=== PATIENT | male | born 1945 | race Caucasian/White ===

== ENCOUNTER 2016-10-28 18:53 | Observation (INO) | payer OTHER ==
[~2016-10-28] VITALS: Ht 177.8 cm; Wt 97.0 kg
[~2016-10-28 18:53] MED LIST: ACEROLA C500 M2 PO; AMLODIPINE BESY10 MG PO; ASCORBIC ACID500 M3 PO; ASPIR 8181 M1 PO; ASPIRIN81 M2 PO; ATENOLOL25 MG PO; ATENOLOL50 M1 NG; ATENOLOL50 MG PO; ATIVAN0.5 MG PO; ATORVASTATIN CA80 MG PO; CARDIZEM CD,CA180 MG PO; CARDIZEM CD120 MG PO; CARDIZEM CD180 MG PO; CARDURA4 MG PO; CENTRAL VITE F1 EACH PO; CENTRAL-VITE S1 EAC2 PO; CILOSTAZOL100 MG PO; CILOSTAZOL50 MG PO; CIPRO500 MG PO; CLEOCIN300 MG PO; COLACE100 MG PO; DETROL LA4 MG PO; DOCU SOFT100 MG PO; DOXAZOSIN MESYLA4 MG PO; DOXAZOSIN MESYLA8 MG PO; ENDOCET 5-3251 EACH PO; IMODIUM MS REL1 EACH PO; KEFLEX500 MG PO; LEVOFLOXACIN500 MG PO; LIPITOR20 MG PO; LIPITOR40 MG PO; LISINOPRIL10 MG PO; LOPERAMIDE2 M1 PO; LOPERAMIDE2 MG PO; LOPRESSOR25 MG PO; LORAZEPAM0.5 MG PO; LOW DOSE ASPIRI81 M1 PO; LYRICA100 MG PO; LYRICA200 MG PO; METOPROLOL TART25 MG PO; MIRALAX17 GM PO; MULTIVITAMIN1 EAC2 PO; NORVASC10 MG PO; NYSTATIN15 G1 TP; PANTOPRAZOLE SO40 MG PO; PLAVIX75 MG PO; PLETAL100 MG PO; PRILOSEC20 MG PO; PRINIVIL10 MG PO; PRINIVIL20 MG PO; PROSOURCE LIQUI30 ML PO; PROTONIX40 MG PO; Q-TUSSIN DM SY240 ML PO; RANITIDINE HCL300 MG PO; ROBITUSSIN DM118 ML PO; TENORMIN25 MG PO; TENORMIN50 MG PO; TRAMADOL HCL100 MG PO; TRAMADOL HCL50 MG PO; TUMS500 MG PO; TYLENOL REGULA325 MG PO; ULTRAM ER100 MG PO; ULTRAM50 MG PO; VITAMIN B-250 MG PO; VITAMIN B-650 M1 PO; VITAMIN B-650 MG PO; VITAMIN C500 M1 PO; ZANTAC300 MG PO; ZOLOFT100 MG PO; ZYPREXA20 MG PO
[2016-10-28 19:35] LABS: HEMATOCRIT 34.3 % (38.0-50.0); MCH 30.3 PG (29.0-34.0); MCHC 34.7 G/DL (30.0-36.0); MCV 87.3 FL (86-99); MEAN PLAT.VOLUME 11.8 uM^3 (9.0-12.4); PLATELET COUNT 123 K/uL (156-360); RBC DIS.WIDTH-CV 12.6 % (11.8-14.6); RBC DIS.WIDTH-SD 40.5 % (39-53); RED BLOOD COUNT 3.93 M/uL (4.00-5.50)
[2016-10-28 19:44] LABS: CHLORIDE 99 mEq/L (99-109); POTASSIUM 4.2 mEq/L (3.7-5.4); SODIUM 130 mEq/L (136-147)
[2016-10-28 19:45] LABS: GLUCOSE 109 mg/dL (70-99)
[2016-10-28 19:47] LABS: ANION GAP 7 MEQ/L (2-14)
[2016-10-28 19:49] LABS: GFR ESTIMATE (CALCULATED) > 59 mL/min/
[2016-10-28 19:50] LABS: UREA NITROGEN (BUN) 13 mg/dL (9-23)
[2016-10-28 19:57] LABS: TROP-I INTERPRETATION NEGATIVE; TROPONIN-I < 0.01 ng/mL (0.0-0.30)
[2016-10-28 23:32] LABS: D-DIMER ELISA 2.29 mg/L FEU (< 0.57)
[2016-10-29] VITALS (7 sets, daily range): BP systolic 112–195; BP diastolic 53–95
[2016-10-29 00:33] LABS: ADD MIUA? YES; BILIRUBIN NEGATIVE; BLOOD NEGATIVE; COLOR COLORLESS ((YELLOW)); GLUCOSE (STRIP) NEGATIVE; INFLUENZA A VIRAL ANTIGEN NEGATIVE; INFLUENZA B VIRAL ANTIGEN NEGATIVE; KETONES NEGATIVE; LEUKOCYTES NEGATIVE; NITRITE NEGATIVE; PROTEIN (STRIP) 100; SPECIFIC GRAVITY 1.003 (1.000-1.030); UROBILINOGEN 0.2 MG/DL (0.2-1.0)
[2016-10-29 00:45] LABS: BACTERIA NONE SEEN /HPF; EPITHELIAL CELLS RARE /HPF; MUCUS NONE SEEN /LPF; RED BLOOD CELLS 0-5 /HPF (0-5); UCUL ADDED? NO; WHITE BLOOD CELLS 0-5 /HPF (0-5)
[2016-10-29 02:24] LABS: TROP-I INTERPRETATION NEGATIVE; TROPONIN-I < 0.01 ng/mL (0.0-0.30)
[2016-10-29 09:06] LABS: HEMATOCRIT 36.4 % (38.0-50.0); MCH 30.2 PG (29.0-34.0); MCHC 34.9 G/DL (30.0-36.0); MCV 86.7 FL (86-99); MEAN PLAT.VOLUME 12.5 uM^3 (9.0-12.4); PLATELET COUNT 139 K/uL (156-360); RBC DIS.WIDTH-CV 13.1 % (11.8-14.6); WHITE BLOOD COUNT 6.4 K/uL (4.1-10.2)
[2016-10-29 09:20] LABS: ALKALINE PHOSPHATASE 117 IU/L (3-129); ANION GAP 9 MEQ/L (2-14); CHLORIDE 101 MEQ/L (99-109); GFR ESTIMATE (CALCULATED) > 59 mL/min/; HDL CHOLESTEROL 57 MG/DL (Desirable>=40); LDL CHOLESTEROL 70 mg/dL (Desirable<100); NON-HDL CHOLESTEROL 79 mg/dL (Desirable<160); POTASSIUM 4.2 MEQ/L (3.7-5.4); SAMPLE HEMOLYSIS CHECK 0; SAMPLE ICTERIC CHECK 0; SAMPLE LIPEMIA CHECK 0; SODIUM 134 MEQ/L (136-147); TOTAL BILIRUBIN 0.5 MG/DL (0.0-1.0); TOTAL CHOLESTEROL 136 mg/dL (Desirable<200); TRIGLYCERIDES 45 MG/DL (Normal: <150); UREA NITROGEN (BUN) 14 mg/dL (9-23)
[2016-10-29 09:27] LABS: TROP-I INTERPRETATION NEGATIVE; TROPONIN-I < 0.01 ng/mL (0.0-0.30)
[2016-10-29 09:32] LABS: GLUCOSE 170 mg/dL (70-99)
[2016-10-29 09:46] LABS: Estimated Average Glucose 123 mg/dL (70-123); HEMOGLOBIN A1c (GLYCOHEMOGLOB) 5.9 % HGB (Below 5.7)
[2016-10-30 00:30] VITALS: BP 185/79
[2016-10-30 04:54] VITALS: BP 156/78
[2016-10-30 07:43] VITALS: BP 153/65
== END 2016-10-30 11:11 | disposition home or self-care (01) ==
LOC: EME 18:53 → 5WEST 22:49 → EDOF 22:49 → 5WEST 10-29 00:35
PROVIDERS: Emergency Medicine; Internal Medicine
DX: R07.89 Other chest pain (principal); I16.0 Hypertensive urgency; I10 Essential (primary) hypertension; E87.1 Hypo-osmolality and hyponatremia; E11.9 Type 2 diabetes mellitus without complications; E78.5 Hyperlipidemia, unspecified; F20.9 Schizophrenia, unspecified; I48.0 Paroxysmal atrial fibrillation; I25.10 Atherosclerotic heart disease of native coronary artery without angina pectoris; Z95.1 Presence of aortocoronary bypass graft; J44.9 Chronic obstructive pulmonary disease, unspecified; D69.6 Thrombocytopenia, unspecified; I65.22 Occlusion and stenosis of left carotid artery; I45.10 Unspecified right bundle-branch block; I73.9 Peripheral vascular disease, unspecified; F79 Unspecified intellectual disabilities
CPT/HCPCS: 71020; 71275; 80048; 80053; 80061; 81003; 83036; 84484; 85027; 85379; 87502; 93005; 94010; 94640; 94640 76; 99202; 99281; 99285; G0378; J0360; J1644; J1650; J2930

== ENCOUNTER 2017-01-01 20:14 | Inpatient (IN) | payer OTHER ==
[~2017-01-01] VITALS: Ht 185.4 cm; Wt 81.8 kg
[2017-01-01 20:44] LABS: HEMATOCRIT 41.4 % (38.0-50.0); MCH 30.3 PG (29.0-34.0); MCHC 33.3 G/DL (30.0-36.0); MCV 90.8 FL (86-99); MEAN PLAT.VOLUME 11.9 uM^3 (9.0-12.4); PLATELET COUNT 182 K/uL (156-360); RBC DIS.WIDTH-CV 13.4 % (11.8-14.6); RBC DIS.WIDTH-SD 43.8 % (39-53); RED BLOOD COUNT 4.56 M/uL (4.00-5.50); WHITE BLOOD COUNT 14.8 K/uL (4.1-10.2)
[2017-01-01 20:52] LABS: CHLORIDE 103 mEq/L (99-109); SODIUM 138 mEq/L (136-147)
[2017-01-01 20:54] LABS: GLUCOSE 149 mg/dL (70-99); POTASSIUM 3.4 mEq/L (3.7-5.4)
[2017-01-01 20:55] LABS: ANION GAP 11 MEQ/L (2-14)
[2017-01-01 20:58] LABS: GFR ESTIMATE (CALCULATED) 53 mL/min/
[2017-01-01 20:59] LABS: UREA NITROGEN (BUN) 19 mg/dL (9-23)
[2017-01-01 21:05] LABS: TROP-I INTERPRETATION NEGATIVE; TROPONIN-I 0.02 ng/mL (0.0-0.30)
[2017-01-02 00:09] LABS: ADD MIUA? YES; BILIRUBIN NEGATIVE; BLOOD NEGATIVE; COLOR YELLOW ((YELLOW)); GLUCOSE (STRIP) NEGATIVE; KETONES NEGATIVE; LEUKOCYTES MODERATE; NITRITE NEGATIVE; PROTEIN (STRIP) 100; SPECIFIC GRAVITY 1.023 (1.000-1.030); UROBILINOGEN 0.2 MG/DL (0.2-1.0)
[2017-01-02] MEDS ORDERED: IMODIUM A-D2 M2 PO (00:12)
[2017-01-02 00:49] LABS: BACTERIA RARE /HPF; EPITHELIAL CELLS RARE /HPF; HYALINE CASTS 0-5 /LPF; MUCUS TRACE /LPF; RED BLOOD CELLS 0-5 /HPF (0-5); UCUL ADDED? NO; WHITE BLOOD CELLS 20-30 /HPF (0-5)
[2017-01-02 03:30] VITALS: BP 147/65
[2017-01-02 04:42] LABS: TROP-I INTERPRETATION NEGATIVE; TROPONIN-I 0.03 ng/mL (0.0-0.30)
[2017-01-02 08:02] VITALS: BP 156/68
[2017-01-02 09:28] LABS: HEMATOCRIT 33.7 % (38.0-50.0); MCH 30.5 PG (29.0-34.0); MCHC 33.5 G/DL (30.0-36.0); MCV 90.8 FL (86-99); MEAN PLAT.VOLUME 12.3 uM^3 (9.0-12.4); PLATELET COUNT 161 K/uL (156-360); RBC DIS.WIDTH-CV 13.5 % (11.8-14.6); RBC DIS.WIDTH-SD 45.1 % (39-53); RED BLOOD COUNT 3.71 M/uL (4.00-5.50); WHITE BLOOD COUNT 16.1 K/uL (4.1-10.2)
[2017-01-02 09:54] LABS: ANION GAP 8 MEQ/L (2-14); CHLORIDE 108 MEQ/L (99-109); GFR ESTIMATE (CALCULATED) > 59 mL/min/; GLUCOSE 115 mg/dL (70-99); SAMPLE HEMOLYSIS CHECK 0; SAMPLE ICTERIC CHECK 0; SAMPLE LIPEMIA CHECK 0; SODIUM 140 MEQ/L (136-147); UREA NITROGEN (BUN) 23 mg/dL (9-23)
[2017-01-02 09:56] LABS: POTASSIUM 4.6 MEQ/L (3.7-5.4)
[2017-01-02 09:57] LABS: TROP-I INTERPRETATION NEGATIVE; TROPONIN-I 0.03 ng/mL (0.0-0.30)
[2017-01-02 11:10] VITALS: BP 180/79
[2017-01-02 15:21] VITALS: BP 180/72
[2017-01-02 20:06] VITALS: BP 156/78
[2017-01-03] VITALS (9 sets, daily range): BP systolic 149–202; BP diastolic 69–85
[2017-01-03 06:13] LABS: HEMATOCRIT 31.7 % (38.0-50.0); MCH 31.4 PG (29.0-34.0); MCHC 34.1 G/DL (30.0-36.0); MCV 92.2 FL (86-99); MEAN PLAT.VOLUME 12.9 uM^3 (9.0-12.4); PLATELET COUNT 127 K/uL (156-360); RBC DIS.WIDTH-CV 13.5 % (11.8-14.6); RBC DIS.WIDTH-SD 45.4 % (39-53); RED BLOOD COUNT 3.44 M/uL (4.00-5.50); WHITE BLOOD COUNT 8.1 K/uL (4.1-10.2)
[2017-01-03 06:52] LABS: ANION GAP 2 MEQ/L (2-14); CHLORIDE 110 MEQ/L (99-109); GFR ESTIMATE (CALCULATED) > 59 mL/min/; GLUCOSE 94 mg/dL (70-99); POTASSIUM 4.5 MEQ/L (3.7-5.4); SAMPLE HEMOLYSIS CHECK 0; SAMPLE ICTERIC CHECK 0; SAMPLE LIPEMIA CHECK 0; SODIUM 140 MEQ/L (136-147); TOTAL BILIRUBIN 0.5 MG/DL (0.0-1.0); UREA NITROGEN (BUN) 18 mg/dL (9-23)
[2017-01-03 06:56] LABS: ALKALINE PHOSPHATASE 92 IU/L (3-129)
[2017-01-04] VITALS (7 sets, daily range): BP systolic 119–188; BP diastolic 63–80
[2017-01-05] VITALS: BP 182/74
[2017-01-05 03:41] VITALS: BP 136/65
[2017-01-05 07:29] VITALS: BP 168/70
[2017-01-05 08:30] LABS: HEMATOCRIT 36.9 % (38.0-50.0); MCH 30.5 PG (29.0-34.0); MCHC 33.6 G/DL (30.0-36.0); MCV 90.9 FL (86-99); PLATELET COUNT 140 K/uL (156-360); RBC DIS.WIDTH-CV 13.2 % (11.8-14.6); RED BLOOD COUNT 4.06 M/uL (4.00-5.50); WHITE BLOOD COUNT 7.2 K/uL (4.1-10.2)
[2017-01-05 09:00] LABS: ANION GAP 6 MEQ/L (2-14); CHLORIDE 102 MEQ/L (99-109); GFR ESTIMATE (CALCULATED) > 59 mL/min/; POTASSIUM 4.8 MEQ/L (3.7-5.4); SAMPLE HEMOLYSIS CHECK 0; SAMPLE ICTERIC CHECK 0; SAMPLE LIPEMIA CHECK 0; SODIUM 138 MEQ/L (136-147); UREA NITROGEN (BUN) 22 mg/dL (9-23)
[2017-01-05 09:24] LABS: GLUCOSE 160 mg/dL (70-99)
[2017-01-05 11:09] VITALS: BP 139/65
[2017-01-05 15:11] VITALS: BP 150/76
[2017-01-05 23:38] VITALS: BP 167/59
[2017-01-06 07:14] VITALS: BP 142/71
[2017-01-06] MEDS ORDERED: CEFTIN500 MG PO (11:22)
== END 2017-01-06 18:02 | disposition home or self-care (01) | DRG 871 ==
LOC: EME → EDBD 20:14 → EME 20:14 → 5SOUTH 01-02 01:03 → EDOF 01-02 01:03 → 5SOUTH 01-02 02:08
PROVIDERS: Emergency Medicine; Internal Medicine; Nurse Practitioner Adult Health
DX: A41.9 Sepsis, unspecified organism (principal); N17.9 Acute kidney failure, unspecified; N30.00 Acute cystitis without hematuria; G93.40 Encephalopathy, unspecified; E87.2 Acidosis; I10 Essential (primary) hypertension; E11.42 Type 2 diabetes mellitus with diabetic polyneuropathy; E78.5 Hyperlipidemia, unspecified; I48.0 Paroxysmal atrial fibrillation; N40.1 Benign prostatic hyperplasia with lower urinary tract symptoms; R33.8 Other retention of urine; F32.3 Major depressive disorder, single episode, severe with psychotic features; E86.0 Dehydration; I73.9 Peripheral vascular disease, unspecified; J44.9 Chronic obstructive pulmonary disease, unspecified; J98.11 Atelectasis; K21.9 Gastro-esophageal reflux disease without esophagitis
CPT/HCPCS: 70450; 71010; 71020; 74176; 80048; 80053; 81003; 83605; 84484; 85027; 87040; 93005; 94799; 99281; 99285; J0360; J0692; J2543; J3370; J7030; J7050

== ENCOUNTER 2017-01-07 12:06 | Emergency (ER) | payer OTHER ==
[~2017-01-07] VITALS: Ht 170.2 cm; Wt 93.0 kg
[~2017-01-07 12:06] MED LIST changes: +CEFTIN500 MG PO; +IMODIUM A-D2 M2 PO
[2017-01-07 12:52] LABS: BASOPHIL COUNT 0.1 K/uL (0-0.1); EOSINOPHIL (%) 11.6 % (0-5); EOSINOPHIL COUNT 0.9 K/uL (0-0.3); HEMATOCRIT 31.7 % (38.0-50.0); IMMATURE GRANULOCYTE (%) 0.9 % (0.0-0.7); IMMATURE GRANULOCYTE COUNT 0.1 K/uL; INSTRUMENT ABS NEUTROPHIL CT 4.5 K/uL; LYMPHOCYTE COUNT 1.6 K/uL (1.0-2.8); MCH 30.5 PG (29.0-34.0); MCHC 34.1 G/DL (30.0-36.0); MCV 89.5 FL (86-99); MEAN PLAT.VOLUME 12.4 uM^3 (9.0-12.4); MONOCYTE (%) 8.5 % (3-12); MONOCYTE COUNT 0.7 K/uL (0-0.8); NEUTROPHIL (%) 58.4 % (45-76); NEUTROPHIL COUNT 4.5 K/uL (1.8-6.4); PLATELET COUNT 126 K/uL (156-360); RBC DIS.WIDTH-CV 13.1 % (11.8-14.6); RBC DIS.WIDTH-SD 42.9 % (39-53); RED BLOOD COUNT 3.54 M/uL (4.00-5.50); WHITE BLOOD COUNT 7.8 K/uL (4.1-10.2)
[2017-01-07 13:03] LABS: CHLORIDE 103 mEq/L (99-109); POTASSIUM 4.1 mEq/L (3.7-5.4); SODIUM 134 mEq/L (136-147)
[2017-01-07 13:06] LABS: ANION GAP 7 MEQ/L (2-14)
[2017-01-07 13:07] LABS: GLUCOSE 106 mg/dL (70-99)
[2017-01-07 13:09] LABS: GFR ESTIMATE (CALCULATED) 58 mL/min/
[2017-01-07 13:10] LABS: UREA NITROGEN (BUN) 34 mg/dL (9-23)
[2017-01-07 15:25] VITALS: BP 166/71
== END 2017-01-07 15:50 | disposition home or self-care (01) ==
LOC: EME → EDBD 12:06 → EME 15:50
PROVIDERS: Emergency Medicine
DX: R55 Syncope and collapse (principal); R51 Headache; M54.9 Dorsalgia, unspecified; W07.XXXA Fall from chair, initial encounter; F79 Unspecified intellectual disabilities; E11.40 Type 2 diabetes mellitus with diabetic neuropathy, unspecified; E78.5 Hyperlipidemia, unspecified; I10 Essential (primary) hypertension; K21.9 Gastro-esophageal reflux disease without esophagitis; F20.9 Schizophrenia, unspecified; Z95.1 Presence of aortocoronary bypass graft; Z87.891 Personal history of nicotine dependence
CPT/HCPCS: 70450; 80048; 85025; 93005; 99281; 99285

== ENCOUNTER → 2017-06-26 17:02 | Emergency (ER) | payer OTHER | LOC: TRA 17:02 → EDBD 17:02 → TRA 17:02 | DX: I46.9 Cardiac arrest, cause unspecified (principal); S72.91XB Unspecified fracture of right femur, initial encounter for open fracture type I or II; S38.1XXA Crushing injury of abdomen, lower back, and pelvis, initial encounter; S62.101B Fracture of unspecified carpal bone, right wrist, initial encounter for open fracture; V57.1XXA Passenger in pick-up truck or van injured in collision with fixed or stationary object in nontraffic accident, initial encounter; Y92.410 Unspecified street and highway as the place of occurrence of the external cause | CPT/HCPCS: 80048; 81003; 82150; 83690; 85025; 86850; 86900; 86901; 99281; 99284; G0480 ==